=== PATIENT | male | born 1955 | race Caucasian/White ===

== ENCOUNTER 2020-10-15 17:34 | Emergency (ER) | payer MEDICARE, OTHER ==
[~2020-10-15 17:34] MED LIST: AMIODARONE HCL200 MG PO; ASPIR 8181 MG PO; ASPIRIN81 MG PO; DOXYCYCLINE HY100 MG PO; ELIQUIS 5 MG TAB5 MG PO; ENTRESTO 24 MG1 EACH PO; IPRATROPIU0.2 MG/1 M NEB; LASIX 40 MG TAB40 MG PO; LEVAQUIN500 MG PO; LEVAQUIN750 MG PO; LOPRESSOR 25 MG25 MG PO; SYMBICORT 160-1 INHA INH; TOPROL XL100 MG PO; TYLENOL WITH C1 EACH PO; VENTOLIN HFA 66.7 GM INH; ZYRTEC10 MG PO
== END 2020-10-15 19:50 | disposition home or self-care (01) ==
LOC: ER1 17:34
DX: S81.812A Laceration without foreign body, left lower leg, initial encounter (principal); J44.9 Chronic obstructive pulmonary disease, unspecified; I11.9 Hypertensive heart disease without heart failure; I25.10 Atherosclerotic heart disease of native coronary artery without angina pectoris; F17.210 Nicotine dependence, cigarettes, uncomplicated; W26.8XXA Contact with other sharp object(s), not elsewhere classified, initial encounter; Y92.009 Unspecified place in unspecified non-institutional (private) residence as the place of occurrence of the external cause; Z23 Encounter for immunization
CPT/HCPCS: 12034; 73590; 90471; 90715; 99283

== ENCOUNTER 2022-03-24 06:29 | Inpatient (IN) | payer MEDICARE, OTHER ==
[~2022-03-24] VITALS: Ht 172.7 cm; Wt 84.4 kg
[~2022-03-24 06:29] MED LIST changes: -ENTRESTO 24 MG1 EACH PO; +ENTRESTO 97 MG1 EACH PO; +PROAIR HFA8.5 GM INH; -VENTOLIN HFA 66.7 GM INH
[2022-03-24 07:40] LABS: BUN/CREATININE RATIO 25 (0-10)
[2022-03-24 08:12] LABS: HEMOGLOBIN 11.1 gm/dl (14.0-17.5); RED BLOOD COUNT 3.7 M/UL (4.20-5.50); WHITE BLOOD COUNT 3.9 K/UL (4.5-11.0)
[2022-03-24] MEDS ORDERED: FOLIC ACID1 MG PO (13:31)
[2022-03-24] MEDS ORDERED: ONDANSETRON HCL8 MG PO (13:31)
[2022-03-24] MEDS ORDERED: ATORVASTATIN CA80 MG PO (13:31)
[2022-03-24] MEDS ORDERED: HYDROCODON-ACE1 EAC2 PO (13:31)
[2022-03-24] MEDS ORDERED: HYDROCHLOROTHIA25 MG PO (13:32)
[2022-03-24] MEDS ORDERED: [UNRECOGNIZED DRUG - OTHER] INJ (13:32)
[2022-03-24] MEDS ORDERED: CARBOPLATIN INJ (13:33)
[2022-03-24] MEDS ORDERED: OPDIVO40 MG/4 ML IV (13:34)
[2022-03-24] MEDS ORDERED: PEMETREXED IV (13:34)
[2022-03-24 14:31] LABS: BUN/CREATININE RATIO 17 (0-10)
[2022-03-24 19:07] LABS: BUN/CREATININE RATIO 23 (0-10)
[2022-03-25] LABS: BUN/CREATININE RATIO 29 (0-10)
[2022-03-25 06:06] LABS: HEMOGLOBIN 10.8 gm/dl (14.0-17.5); RED BLOOD COUNT 3.59 M/UL (4.20-5.50); WHITE BLOOD COUNT 3.9 K/UL (4.5-11.0)
[2022-03-25 06:35] LABS: BUN/CREATININE RATIO 23 (0-10)
[2022-03-26 06:23] LABS: HEMOGLOBIN 9.9 gm/dl (14.0-17.5); RED BLOOD COUNT 3.34 M/UL (4.20-5.50); WHITE BLOOD COUNT 4.6 K/UL (4.5-11.0)
[2022-03-26 06:52] LABS: BUN/CREATININE RATIO 32 (0-10)
[2022-03-26] MEDS ORDERED: NICOTINE PATCH1 EAC2 TD (17:59)
[2022-03-26] MEDS ORDERED: OMNICEF 300 MG300 MG PO (17:59)
[2022-03-26] MEDS ORDERED: PREDNISONE10 MG PO (17:59)
== END 2022-03-26 18:50 | disposition home or self-care (01) | DRG 194 ==
LOC: ER1 06:29 → CDU 10:23 → MED SURG 4 10:23 → CDU 14:49 → MED SURG 4 14:49 → M/S 14:49 → MED SURG 4 03-26 18:50
PROVIDERS: Internal Medicine; Physician Assistant; Physician Assistant Medical; ADMIT Internal Medicine
DX: J18.9 Pneumonia, unspecified organism (principal); C79.31 Secondary malignant neoplasm of brain; C79.89 Secondary malignant neoplasm of other specified sites; I42.0 Dilated cardiomyopathy; Z20.822 Contact with and (suspected) exposure to COVID-19; J44.1 Chronic obstructive pulmonary disease with (acute) exacerbation; E87.1 Hypo-osmolality and hyponatremia; J44.0 Chronic obstructive pulmonary disease with (acute) lower respiratory infection; D61.818 Other pancytopenia; I25.10 Atherosclerotic heart disease of native coronary artery without angina pectoris; I44.7 Left bundle-branch block, unspecified; E87.6 Hypokalemia; I10 Essential (primary) hypertension; Z85.118 Personal history of other malignant neoplasm of bronchus and lung; Z95.1 Presence of aortocoronary bypass graft; Z79.01 Long term (current) use of anticoagulants; Z95.2 Presence of prosthetic heart valve; Z85.828 Personal history of other malignant neoplasm of skin; Z82.49 Family history of ischemic heart disease and other diseases of the circulatory system; Z80.1 Family history of malignant neoplasm of trachea, bronchus and lung; Z95.810 Presence of automatic (implantable) cardiac defibrillator
CPT/HCPCS: 0240U; 36415; 36600; 71045; 80048; 80053; 82550; 82553; 82803; 83605; 83735; 83880; 84484; 85025; 85027; 87040; 93005; 94640; 94760; 94762; 96374; 96375; 99285; J0456; J0696; J2930; J7030; Q9967

== ENCOUNTER 2022-04-22 11:23 | Inpatient (IN) | payer MEDICARE, OTHER ==
[~2022-04-22] VITALS: Ht 172.7 cm; Wt 81.2 kg
[~2022-04-22 11:23] MED LIST changes: +ATORVASTATIN CA80 MG PO; +CARBOPLATIN INJ; +FOLIC ACID1 MG PO; +HYDROCHLOROTHIA25 MG PO; +HYDROCODON-ACE1 EAC2 PO; +NICOTINE PATCH1 EAC2 TD; +OMNICEF 300 MG300 MG PO; +ONDANSETRON HCL8 MG PO; +OPDIVO40 MG/4 ML IV; +PEMETREXED IV; +PREDNISONE10 MG PO; +[UNRECOGNIZED DRUG - OTHER] INJ
[2022-04-22 13:04] LABS: HEMOGLOBIN 10.1 gm/dl (14.0-17.5); RED BLOOD COUNT 3.29 M/UL (4.20-5.50)
[2022-04-22 13:24] LABS: BUN/CREATININE RATIO 23 (0-10)
[2022-04-23 08:15] LABS: HEMOGLOBIN 10.1 gm/dl (14.0-17.5); RED BLOOD COUNT 3.23 M/UL (4.20-5.50); WHITE BLOOD COUNT 22.5 K/UL (4.5-11.0)
[2022-04-23 08:55] LABS: BUN/CREATININE RATIO 27 (0-10)
[2022-04-23] MEDS ORDERED: IPRAT-ALBUT 0.5-3 ML INH (10:08)
[2022-04-23] MEDS ORDERED: CENTRUM SILVER1 EAC2 PO (10:11)
[2022-04-23 15:06] LABS: WHITE BLOOD COUNT 19.8 K/UL (4.5-11.0)
[2022-04-23] MEDS ORDERED: CEFUROXIME500 MG PO (17:29)
== END 2022-04-23 21:20 | disposition home or self-care (01) | DRG 871 ==
LOC: ER1 11:23 → CDU 17:56 → MED SURG 4 17:56
PROVIDERS: Physician Assistant Medical; ADMIT Internal Medicine
DX: A41.9 Sepsis, unspecified organism (principal); J18.9 Pneumonia, unspecified organism; E87.1 Hypo-osmolality and hyponatremia; I42.0 Dilated cardiomyopathy; C79.31 Secondary malignant neoplasm of brain; C79.89 Secondary malignant neoplasm of other specified sites; I95.9 Hypotension, unspecified; I25.10 Atherosclerotic heart disease of native coronary artery without angina pectoris; E87.6 Hypokalemia; I25.5 Ischemic cardiomyopathy; D64.9 Anemia, unspecified; I71.4 Abdominal aortic aneurysm, without rupture; I44.7 Left bundle-branch block, unspecified; E83.42 Hypomagnesemia; Z85.118 Personal history of other malignant neoplasm of bronchus and lung; Z98.890 Other specified postprocedural states; Z95.1 Presence of aortocoronary bypass graft; Z82.49 Family history of ischemic heart disease and other diseases of the circulatory system; Z80.1 Family history of malignant neoplasm of trachea, bronchus and lung
CPT/HCPCS: 71045; 80048; 80053; 81001; 82550; 82553; 83605; 83735; 83880; 84132; 84484; 85007; 85027; 87040; 93005; 94640; 94664; 94760; 99285; J0456; J0696; J2930; J3475; J7030; U0002